=== PATIENT | female | born 1960 | race African-American/Black ===

== ENCOUNTER 2018-09-26 10:43 | Emergency (ER) | payer MEDICAID ==
[~2018-09-26] VITALS: Ht 165.1 cm; Wt 71.2 kg
[2018-09-26] MEDS ORDERED: BENADRYL25 MG ORAL (11:01)
[2018-09-26] MEDS ORDERED: SEROQUEL200 MG ORAL (11:01)
[2018-09-26] MEDS ORDERED: HYDROCHLOROTHIA25 MG ORAL (11:01)
[2018-09-26 11:14] VITALS: BP 126/74
[2018-09-26 11:33] LABS: APPEARANCE,URINE CLEAR; BILIRUBIN, URINE NEGATIVE (NEGATIVE); GLUCOSE, URINE (UA) NEGATIVE (NEGATIVE); KETONES,URINE NEGATIVE (NEGATIVE); LEUKOCYTE ESTERASE ,URINE 3+ (NEGATIVE); NITRITE,URINE NEGATIVE (NEGATIVE); PH,URINE 5 (4.5-8.0); PROTEIN,URINE 1+ (NEGATIVE); UROBILINOGEN,URINE NORMAL MG/DL (0.0-1.0)
[2018-09-26 11:42] LABS: COLOR,URINE YELLOW
[2018-09-26] MEDS ORDERED: METROGEL-VAGINA70 G1 VAGIN (12:00)
[2018-09-26 12:31] VITALS: BP 123/73
--- NOTE | 2018-09-26 12:34 | Emergency Room Report ---
History of Present Illness General Chief Complaint: Female Urogenital Problems Source: Patient Present Illness HPI Patient is a 58-year-old female presented after increased dysuria. Patient reports having increased vaginal discharge. She denies any fever. She reports having increased burning sensation with urination. She denies any vomiting or severe abdominal pain. Allergies: Coded Allergies: No Known Allergies (Unverified , 09/26/18) Patient History Past Medical History: see triage record Reviewed Nursing Documentation: PMH: Agreed; PSxH: Agreed Nursing Documentation-PMH Hx Hypertension: Yes Hx COPD: Yes Review of Systems All Other Systems: negative except mentioned in HPI Physical Exam Vital Signs Date Time Temp Pulse Resp B/P (MAP) Pulse Ox O2 Delivery O2 Flow Rate FiO2 09/26/18 10:54 97.9 74 18 136/83 98 Room Air General Appearance: well appearing, no apparent distress, alert, GCS 15 Head: normocephalic, atraumatic ENT: hearing grossly normal, normal voice Neck: full range of motion, supple Respiratory: no respiratory distress, speaking full sentences Cardiovascular #1: normal inspection Gastrointestinal: normal inspection, normal bowel sounds, non tender, soft Musculoskeletal: no calf tenderness Neurologic: normal inspection, alert, oriented x3, responsive, ophthalmic asst III-XII nml as tested, normal gait Psychiatric: normal inspection, mood/affect normal Skin: no rash Medical Decision Making Diagnostic Impression: Primary Impression: Trichomonas vaginitis ER Course Patient presented for dysuria. Differential diagnosis included was not limited to appendicitis, urinary tract infection, pelvic inflammatory disease, urethritis, herpes among others. The urinalysis showed evidence of trichomonas infection. Patient was given prescription for MetroGel. The patient is advised follow-up with her TRANSITIONAL STUDIES INSTRUCTOR for recheck. Labs Test 09/26/18 11:07 Urine Color Yellow Urine Appearance Clear Urine pH 5 (4.5-8.0) Urine Specific [place] 1.020 (1.005-1.035) Urine Protein 1+ (NEGATIVE) Urine Glucose (UA) Negative (NEGATIVE) Urine Ketones Negative (NEGATIVE) Urine Blood 1+ (NEGATIVE) Urine Nitrite Negative (NEGATIVE) Urine Bilirubin Negative (NEGATIVE) Urine Urobilinogen Normal MG/DL (0.0-1.0) Urine Leukocyte Esterase 3+ (NEGATIVE) Urine RBC 0-2 /HPF (0 - 2) Urine WBC 5-10 /HPF (0 - 2) Urine Squamous Epithelial Cells Few /LPF (NONE/OCC) Urine Bacteria Few /HPF (NONE) Urine Trichomonas Few /HPF (NONE) Last Vital Signs Date Time Temp Pulse Resp B/P (MAP) Pulse Ox O2 Delivery O2 Flow Rate FiO2 09/26/18 11:14 97.0 94 10 126/74 99 Room Air Status: improved Disposition: HOME, SELF-CARE Condition: Stable Scripts Metronidazole* (METROGEL-VAGINAL*) 70 Gm Gel.w.appl 1 APPL VAGIN EVERY 12 HOURS, #70 GM Prov: Darrick Elizabeth MD 09/26/18 Patient Instructions: Trichomoniasis Darrick Elizabeth MD Sep 26, 2018 12:34
== END 2018-09-26 12:33 | disposition home or self-care (01) ==
LOC: EMR 11:49
DX: A59.01 Trichomonal vulvovaginitis (principal); J44.9 Chronic obstructive pulmonary disease, unspecified; I10 Essential (primary) hypertension
CPT/HCPCS: 81003; 99283

== ENCOUNTER 2019-06-03 12:33 | Emergency (ER) | payer MEDICAID ==
[~2019-06-03] VITALS: Ht 167.6 cm; Wt 71.7 kg
[~2019-06-03 12:33] MED LIST: BENADRYL25 MG ORAL; HYDROCHLOROTHIA25 MG ORAL; METROGEL-VAGINA70 G1 VAGIN; SEROQUEL200 MG ORAL
[2019-06-03 12:34] VITALS: BP 161/96
--- NOTE | 2019-06-03 12:34 | NUR ---
ED Nurse Note: received pt. pt lying in bed with facial grimacing. pt brought by RA from home due to generalized pain on right side of body for 2 days. pt has hard time to move the right side due to pain. AAO x4. respirations even and non-labored noted. on cardiac cath technologist. IV access noted on left forarm 20 G by EMS. skin warm to touch. no open wound noted. no recent injury. will wait for the further order.
[2019-06-03] MEDS ORDERED: Ketorolac 30mg Inj IV ONE (13:00)
[2019-06-03 14:00] VITALS: BP 162/102
--- NOTE | 2019-06-03 14:00 | NUR ---
ED Nurse Note: pending urine collection. pt lying in bed comfortably. no facial grimacing or moaning noted. will wait for the further order.
[2019-06-03] MEDS ORDERED: NAPROXEN SODIU220 M2 PO (14:01)
[2019-06-03 14:10] LABS: BASOPHILS % (AUTO) 1.5 % (0.0-2.0); EOSINOPHILS % (AUTO) 1.3 % (0.0-3.0); HEMOGLOBIN 17.7 G/DL (12.0-16.0); LYMPHOCYTES % (AUTO) 19.8 % (20.0-45.0); MEAN CORPUSCULAR VOLUME 87 FL (80-99); MONOCYTES % (AUTO) 7.8 % (1.0-10.0); NEUTROPHILS % (AUTO) 69.6 % (45.0-75.0); PLATELET COUNT 286 K/UL (150-450); RED BLOOD COUNT 6.29 M/UL (4.20-5.40); RED CELL DISTRIBUTION WIDTH 13.9 % (11.6-14.8); WHITE BLOOD COUNT 8.6 K/UL (4.8-10.8)
[2019-06-03 14:18] LABS: ANION GAP 8 mmol/L (5-15); BLOOD UREA NITROGEN 8 mg/dL (7-18); CALCIUM 9.4 MG/DL (8.5-10.1); CARBON DIOXIDE 25 MMOL/L (21-32); CHLORIDE 106 MMOL/L (98-107); CREATININE 0.9 MG/DL (0.55-1.30); POTASSIUM 3.9 MMOL/L (3.5-5.1); SODIUM 139 MMOL/L (136-145)
[2019-06-03 14:32] LABS: ALANINE AMINOTRANSFERASE 20 U/L (12-78); ALBUMIN 3.6 G/DL (3.4-5.0); ALBUMIN/GLOBULIN RATIO 0.9 (1.0-2.7); ALKALINE PHOSPHATASE 82 U/L (46-116); ASPARTATE AMINO TRANSFERASE 18 U/L (15-37); BILIRUBIN,TOTAL 0.4 MG/DL (0.2-1.0); CKMB 1.1 NG/ML (0.0-3.6); CREATINE KINASE 56 U/L (26-308)
--- NOTE | 2019-06-03 15:04 | Emergency Room Report ---
History of Present Illness General Chief Complaint: Chest Pain Source: Patient Present Illness HPI This patient states that she has had right-sided chest pain wrapping around her right back for the past 24 hours. She states that the pain is worse when coughing and movement. She states she noted it after having several days of cough and sputum production. She states she does smoke tobacco. She has a long history of tobacco use. She denies abdominal pain. She denies nausea or vomiting. She denies fever chills. She denies trauma. She has no other complaints. Allergies: Coded Allergies: No Known Allergies (Unverified , 09/26/18) Patient History Past Medical History: see triage record, HTN, COPD Social History: Reports: smoking, alcohol use; Denies: drug use Reviewed Nursing Documentation: PMH: Agreed; PSxH: Agreed Nursing Documentation-PMH Past Medical History: No History, Except For Hx Hypertension: Yes Hx COPD: Yes Review of Systems All Other Systems: negative except mentioned in HPI Physical Exam Vital Signs Date Time Temp Pulse Resp B/P (MAP) Pulse Ox O2 Delivery O2 Flow Rate FiO2 06/03/19 12:28 98.1 81 16 155/98 (117) 98 Room Air Sp02 EP Interpretation: reviewed, normal General Appearance: no apparent distress, alert, GCS 15, non-toxic Head: normocephalic, atraumatic Eyes: bilateral eye normal inspection, bilateral eye PERRL ENT: hearing grossly normal, normal pharynx, no angioedema, normal voice Neck: full range of motion, supple/symm/no masses Respiratory: chest non-tender, lungs clear, normal breath sounds, no respiratory distress, no retraction, no accessory muscle use, speaking full sentences Cardiovascular #1: regular rate, rhythm, no edema Gastrointestinal: normal bowel sounds, non tender, soft, non-distended, no guarding, no rebound Rectal: deferred Musculoskeletal: back normal, gait/station normal, normal range of motion, non- tender Neurologic: alert, oriented x3, responsive, motor strength/tone normal, sensory intact, speech normal Psychiatric: judgement/insight normal, memory normal, mood/affect normal, no suicidal/homicidal ideation Reflexes: 3+ bicep (R), 3+ bicep (L), 3+ tricep (R), 3+ tricep (L), 3+ knee (R) , 3+ knee (L) Skin: no rash, normal color Medical Decision Making Diagnostic Impression: Primary Impression: Bronchitis Additional Impression: Pleuritic chest pain ER Course This patient has a clinical presentation with Bronchitis. The evaluation was very reassuring with a normal lung exam, no respiratory distress, normal pulse oximetry. The patient is low risk chest pain. I considered PE, PTX, acute coronary syndrome, aortic dissection, pneumonia which is unlikely given hx, CE, CXR. Low risk PERC and Wells. Negative work-up to include Cardiac enzymes, CXR , EKG. Given history and PE I do not feel that this patient needs further evaluation at this time. The patient was instructed to follow-up closely with their PCP and close return precautions were given. Given the long history of tobacco use I will go ahead and treat with a course of antibiotics given the worsening cough and sputum production. No emergency medical condition was identified. Laboratory Tests Test 06/03/19 14:00 White Blood Count 8.6 K/UL (4.8-10.8) Red Blood Count 6.29 M/UL (4.20-5.40) H Hemoglobin 17.7 G/DL (12.0-16.0) H Hematocrit 55.0 % (37.0-47.0) H Mean Corpuscular Volume 87 FL (80-99) Mean Corpuscular Hemoglobin 28.2 PG (27.0-31.0) Mean Corpuscular Hemoglobin Concent 32.2 G/DL (32.0-36.0) Red Cell Distribution Width 13.9 % (11.6-14.8) Platelet Count 286 K/UL (150-450) Mean Platelet Volume 6.6 FL (6.5-10.1) Neutrophils (%) (Auto) 69.6 % (45.0-75.0) Lymphocytes (%) (Auto) 19.8 % (20.0-45.0) L Monocytes (%) (Auto) 7.8 % (1.0-10.0) Eosinophils (%) (Auto) 1.3 % (0.0-3.0) Basophils (%) (Auto) 1.5 % (0.0-2.0) Sodium Level 139 MMOL/L (136-145) Potassium Level 3.9 MMOL/L (3.5-5.1) Chloride Level 106 MMOL/L (98-107) Carbon Dioxide Level 25 MMOL/L (21-32) Anion Gap 8 mmol/L (5-15) Blood Urea Nitrogen 8 mg/dL (7-18) Creatinine 0.9 MG/DL (0.55-1.30) Estimate Glomerular Filtration Rate > 60 mL/min (>60) Glucose Level 100 MG/DL (74-106) Calcium Level 9.4 MG/DL (8.5-10.1) Total Bilirubin 0.4 MG/DL (0.2-1.0) Aspartate Amino Transferase (AST) 18 U/L (15-37) Alanine Aminotransferase (ALT) 20 U/L (12-78) Alkaline Phosphatase 82 U/L (46-116) Total Creatine Kinase 56 U/L (26-308) Creatine Kinase MB 1.1 NG/ML (0.0-3.6) Creatine Kinase MB Relative Index 1.9 Troponin I 0.000 ng/mL (0.000-0.056) Total Protein 7.7 G/DL (6.4-8.2) Albumin 3.6 G/DL (3.4-5.0) Globulin 4.1 g/dL Albumin/Globulin Ratio 0.9 (1.0-2.7) L EKG Diagnostic Results Rate: normal Rhythm: NSR ST Segments: other - NSST Rhythm Strip Diag. Results EP Interpretation: yes Rate: 80's Rhythm: NSR, no PVC's, no ectopy Chest X-Ray Diagnostic Results Chest X-Ray Diagnostic Results : Chest X-Ray Ordered: Yes # of Views/Limited/Complete: 1 View Indication: Chest Pain EP Interpretation: Yes Interpretation: other - Questionable pulmonary interstitial prominence. Impression: No acute disease Electronically Signed by: Shawna France DO Last Vital Signs Date Time Temp Pulse Resp B/P (MAP) Pulse Ox O2 Delivery O2 Flow Rate FiO2 06/03/19 12:28 98.1 81 16 155/98 (117) 98 Room Air Status: improved Disposition: HOME, SELF-CARE Condition: Improved Referrals: [facility],REFERRING (PCP) Patient Instructions: Nonspecific Chest Pain Shawna France DO Jun 03, 2019 15:04
[2019-06-03] MEDS ORDERED: ZITHROMAX250 MG ORAL ×2 (15:16→15:45)
--- NOTE | 2019-06-03 15:37 | NUR ---
ER DISCHARGE NOTE: Patient is cleared to be discharged per ERMD with daughter, pt is aox4, on room air, with stable vital signs. pt was given dc and prescription instructions, pt was able to verbalize understanding, pt id band and iv site removed without complications. pt is able to ambulate with steady gait. pt took all belongings.
[2019-06-03 15:59] VITALS: BP 128/83
--- NOTE | 2019-06-03 16:00 | NUR ---
Note undone in EDM - 06/03/19 at 1600 by [facility] ER DISCHARGE NOTE: Patient is cleared to be discharged per ERMD with daughter, pt is aox4, on room air, with stable vital signs. pt was given dc and prescription instructions, pt was able to verbalize understanding, pt id band and iv site removed without complications. pt is able to ambulate with steady gait. pt took all belongings.
--- NOTE | 2019-06-03 17:21 | Diagnostic Imaging Report ---
Indication: Chest pain and shortness of breath Technique: One view of the chest Comparison: none Findings: No acute infiltrates or effusions. Equivocal minimal interstitial prominence noted. Normal heart size. Pleural spaces are clear Impression: Equivocal minimal interstitial prominence, acuity indeterminate if real Negative for infiltrate.
--- NOTE | 2019-06-05 12:57 | Cardiology Report ---
APPROVED REPORT EKG Measurement Heart [id number] SD [id number] [id number] Normal sinus rhythm Possible Left atrial enlargement T wave abnormality, consider anterior ischemia Abnormal ECG
== END 2019-06-03 15:37 | disposition home or self-care (01) ==
LOC: EDBD 12:33 → EMR 13:01
DX: J40 Bronchitis, not specified as acute or chronic (principal); R07.89 Other chest pain; I10 Essential (primary) hypertension; J44.9 Chronic obstructive pulmonary disease, unspecified
CPT/HCPCS: 36415; 71045; 80053; 82550; 82553; 84484; 85025; 93005; 96374; 99284; J1885

== ENCOUNTER 2020-07-01 16:23 | Emergency (ER) | payer MEDICAID ==
[~2020-07-01] VITALS: Ht 162.6 cm; Wt 59.0 kg
[~2020-07-01 16:23] MED LIST changes: +NAPROXEN SODIU220 M2 PO; +ZITHROMAX250 MG ORAL
--- NOTE | 2020-07-01 16:33 | NUR ---
ED Nurse Note: Pt BIBA 66 for c/o L arm pain 8/10 for 2 days. Pt has been seen previously for this. She denies napoleon inury to arm. Pt is alert and orientedx4, ambulatory. She denies numbness/tingling.
[2020-07-01 16:35] VITALS: BP 158/97
[2020-07-01] MEDS ORDERED: Ketorolac 30mg Inj IM ONE (17:00)
[2020-07-01] MEDS ORDERED: Cephalexin 500mg cap ORAL ONE (17:00)
[2020-07-01] MEDS ORDERED: hydroCHLOROthiazide 25mg cap ORAL ONE (17:00)
--- NOTE | 2020-07-01 18:31 | Emergency Room Report ---
History of Present Illness General Chief Complaint: General Complaint Present Illness HPI 59-year-old female presents to the emergency department complaining of 8 out of 10 severity pain to the left arm x2 days. Patient reports erythema and warmth. She denies trauma or fall. She denies notable recent open wounds. She does report history of high blood pressure, COPD and rheumatoid arthritis. Patient reports she also feels the pain in her left hand. She is right-hand dominant. She reports that she had similar symptoms in the past on the opposite arm. Patient also reports that she is out of her blood pressure medication. She states that she has been out for 3 days. She denies fevers or chills. Patient denies recent injections or IVs in the affected arm. She denies paresthesias. She denies neck pain or shoulder pain. She states she has not taken any medication in an attempt to relieve her symptoms. Patient reports she is homeless. She denies decrease in movement, but reports movement of the left hand, wrist, or forearm exacerbate her pain. Allergies: Coded Allergies: No Known Allergies (Unverified , 09/26/18) COVID-19 Screening Contact w/high risk pt: No Experienced COVID-19 symptoms?: No COVID-19 Testing performed PHARMACOLOGY ASSOCIATE: No Patient History Past Medical History: see triage record Past Surgical History: none Pertinent Family History: none Now: No Reviewed Nursing Documentation: PMH: Agreed; PSxH: Agreed Nursing Documentation-PMH Hx Hypertension: Yes Hx COPD: Yes Review of Systems All Other Systems: negative except mentioned in HPI Physical Exam Vital Signs Date Time Temp Pulse Resp B/P (MAP) Pulse Ox O2 Delivery O2 Flow Rate FiO2 07/01/20 16:20 97.9 90 20 171/111 (131) 98 Room Air 07/01/20 16:35 99 Sp02 EP Interpretation: reviewed, normal General Appearance: no apparent distress, alert, GCS 15, non-toxic Head: normocephalic, atraumatic Eyes: bilateral eye normal inspection, bilateral eye PERRL ENT: hearing grossly normal, normal voice Neck: full range of motion Respiratory: chest non-tender, lungs clear, normal breath sounds, no wheezing, speaking full sentences Cardiovascular #1: regular rate, rhythm, normal capillary refill Cardiovascular #2: 2+ radial (R), 2+ radial (L) Musculoskeletal: back normal, normal range of motion, gait/station normal, tender - left hand and wrist. , swelling - left hand and wrist Neurologic: alert, motor strength/tone normal, oriented x3, sensory intact, responsive, speech normal, grossly normal, no focal defects Psychiatric: judgement/insight normal Skin: other - Left hand and wrist are swollen with some visible erythema, and palpable warmth. NO obvious open wounds. NVI Medical Decision Making PA Attestation Dr. Taylor Is my supervising Physician whom patient management has been discussed with. Diagnostic Impression: Primary Impression: Cellulitis Qualified Codes: L03.114 - Cellulitis of left upper limb Additional Impression: Arm pain, left ER Course 59-year-old female presents to the emergency department complaining of 8 out of 10 severity pain to the left arm x2 days. Patient reports erythema and warmth. She denies trauma or fall. She denies notable recent open wounds. She does report history of high blood pressure, COPD and rheumatoid arthritis. Patient reports she also feels the pain in her left hand. She is right-hand dominant. She reports that she had similar symptoms in the past on the opposite arm. Patient also reports that she is out of her blood pressure medication. She states that she has been out for 3 days. She denies fevers or chills. Patient denies recent injections or IVs in the affected arm. She denies paresthesias. She denies neck pain or shoulder pain. She states she has not taken any medication in an attempt to relieve her symptoms. Patient reports she is homeless. She denies decrease in movement, but reports movement of the left hand, wrist, or forearm exacerbate her pain. She denies HOWE, Dizziness, nausea or vomiting. Ddx considered but are not limited to cellulitis, Necrotizing fasciitis, allergic reaction, burn, dermatitis, fracture, d/L, gout, RA, DVT just to name a few. Vital signs: non tachycardic, pt. is afebrile. PT. has elevated BP reading c/w not being on her medication x 3 days. H&PE are most consistent with suspected cellulitis of the left hand and forearm. ORDERS: none required at this time, the diagnosis is clinical ED INTERVENTIONS: - Keflex Po -Toradol IM -HCTZ PO -Left wrist splint applied by RN. Pt. remains neurovascularly intact. -- Left arm Sling applied by senior cytogenetic technologist. Pt. remains neurovascularly intact. PT. reports her pain has been reduced. She reports she is homeless, arrangements are made so that the pt. receives three days of abx here in addition to her prescriptions. DISCHARGE: At this time pt. is stable for d/c to home. Will provide printed patient care instructions, and any necessary prescriptions. Care plan and follow up instructions have been discussed with the patient prior to discharge. I, The treating provider, Joanne BEAR, has assessed and agrees that patient is medically stable for discharge to an outpatient disposition. Last Vital Signs Date Time Temp Pulse Resp B/P (MAP) Pulse Ox O2 Delivery O2 Flow Rate FiO2 07/01/20 17:33 97.9 07/01/20 16:35 87 17 158/97 99 Room Air 07/01/20 16:35 99 Disposition: HOME, SELF-CARE Condition: Stable Scripts Hydrochlorothiazide* (HYDROCHLOROTHIAZIDE*) 25 Mg Tablet 25 MG ORAL DAILY for 30 Days, #30 TAB Prov: Joanne Nolasco 07/01/20 Ibuprofen* (MOTRIN*) 600 Mg Tablet 600 MG ORAL THREE TIMES A DAY, #30 TAB Prov: Joanne Nolasco 07/01/20 Trimethoprim/Sulfamethoxazole 160/800* (BACTRIM DS TABLET*) 1 Each Tablet 1 TAB ORAL TWICE A DAY for 7 Days, #14 TAB Prov: Joanne Nolasco 07/01/20 Cephalexin* (KEFLEX*) 500 Mg Capsule 500 MG ORAL EVERY 12 HOURS for 7 Days, #14 CAP 0 Refills Prov: Joanne Nolasco 07/01/20 Referrals: NOT CHOSEN [facility]/,REFERRING (PCP) Jessica Gonzalez [facility]. [facility] + [facility] Patient Instructions: Cellulitis, [id number] Additional Instructions: Take medications as directed. Follow up with a Primary Care Provider in 3-5 days, even if your symptoms have resolved. --Please review list of primary care clinics, if you do not already have a primary care provider Return sooner to ED if new symptoms occur, or current symptoms become worse. - Please note that this Emergency Department Report was dictated using Working Equityoperating room technologist technology software, occasionally this can lead to erroneous entry secondary to interpretation by the dictation equipment. Joanne Nolasco Jul 01, 2020 18:31
[2020-07-01] MEDS ORDERED: BACTRIM DS TAB1 EAC1 ORAL (18:45)
[2020-07-01] MEDS ORDERED: IBUPROFEN600 M1 ORAL (18:45)
[2020-07-01] MEDS ORDERED: CEPHALEXIN500 MG ORAL (18:45)
[2020-07-01 19:14] VITALS: BP 149/86
[2020-07-01 19:15] VITALS: BP 142/84
--- NOTE | 2020-07-01 19:17 | NUR ---
ER DISCHARGE NOTE: Patient is cleared to be discharged per ERMD, pt is aox4, on room air, with stable vital signs. pt was given dc and prescription instructions, pt was able to verbalize understanding, pt id band removed. pt is able to ambulate with steady gait. pt took all belongings.
[2020-07-01] MEDS ORDERED: HYDROCHLOROTHIA25 MG ORAL (19:58)
== END 2020-07-01 19:17 | disposition home or self-care (01) ==
LOC: EDBD 16:23 → EMR 17:02
DX: L03.114 Cellulitis of left upper limb (principal); M79.602 Pain in left arm; I10 Essential (primary) hypertension; J44.9 Chronic obstructive pulmonary disease, unspecified; M06.9 Rheumatoid arthritis, unspecified
CPT/HCPCS: 29125; 96372; J1885; Z7502; 99283